=== PATIENT | female | born 1985 | race American Indian/Alaskan Native ===

== ENCOUNTER 2021-01-17 22:01 | Emergency (ER) | payer OTHER ==
[~2021-01-17] VITALS: Ht 167.6 cm; Wt 101.2 kg
[2021-01-17 22:04] VITALS: BP 130/78
[2021-01-17] MEDS ORDERED: SYNT25TA PO (22:10)
--- NOTE | 2021-01-17 23:18 | REPVR ---
PROCEDURE INFORMATION: Exam: XR Right Forearm Exam date and time: 01/17/21 (10:47pm) Age: 35 years old Clinical indication: Trauma TECHNIQUE: Imaging protocol: XR Right forearm Views: 2 views COMPARISON: No relevant prior studies available FINDINGS: Bones/joints: Unremarkable. No acute fracture nor dislocation. Soft tissues: Unremarkable. IMPRESSION: No acute findings. Electronically signed by: Siomara Stone On 01/17/2021 23:19:28 PM
--- NOTE | 2021-01-17 23:25 | REPVR ---
PROCEDURE INFORMATION: Exam: XR Right Hand Exam date and time: 01/17/21 (10:48pm) Age: 35 years old Clinical indication: Trauma TECHNIQUE: Imaging protocol: XR Right hand Views: 3 or more views COMPARISON: No relevant prior studies available FINDINGS: Bones/joints: Unremarkable. No acute fracture nor dislocation. Soft tissues: Unremarkable. IMPRESSION: No acute findings. Electronically signed by: Siomara Stone On 01/17/2021 23:26:33 PM
== END 2021-01-17 23:55 | disposition home or self-care (01) ==
LOC: M ED 22:01
DX: S60.221A Contusion of right hand, initial encounter (principal); W22.8XXA Striking against or struck by other objects, initial encounter; Y93.9 Activity, unspecified; Y92.9 Unspecified place or not applicable; Y99.0 Civilian activity done for income or pay